=== PATIENT | male | born 1990 | race Caucasian/White ===

== ENCOUNTER 2018-08-26 20:02 | Emergency (ER) | payer BC ==
--- OUTSIDE RECORDS SUMMARY | 2018-08-26 20:05 | XMS REPORT | Clinical Summary ---
:1990 Author Organization [facility] Address [address] [place] [address] Care Team Providers Name Role Phone Demetrius Hale Primary Care Provider Allergies No Known Allergies Medications Medication Sig Dispensed Refills Start Date End Date Status divalproex (DEPAKOTE) Take 500 mg by 0 Active 500 MG EC tablet mouth 2 (two) times daily. ARIPiprazole (ABILIFY) Take 15 mg by 0 Active 15 MG tablet mouth daily. lisdexamfetamine Take 40 mg by 0 Active (VYVANSE) 40 MG capsule mouth every morning. HYDROcodone-acetaminophe Take 1-2 18 tablet 0 04/20/2018 Active n (NORCO 5-325) 5-325 mg tablets by per tablet mouth every 4 (four) hours as needed for Pain. Max Daily Amount: 16 tablets docusate sodium (COLACE) Take 1 capsule 60 capsule 0 04/20/2018 Active 100 MG capsule (100 mg total) by mouth 2 (two) times daily as needed for Constipation. Active Problems Not on file Encounters Date Type Specialty Care Team Description 04/20/2018 Emergency Emergency Medicine Olayinka Romero, Acute left- sided low MD back pain without sciatica (Primary Dx) after 08/25/2017 Social History Tobacco Use Types Packs/Day Years Used Date Light Tobacco Smoker Smokeless Tobacco: Never Used Alcohol Use Drinks/Week oz/Week Comments No Sex Assigned at Date Recorded Not on file Job Start Date Occupation Industry Not on file Not on file Not on file Travel History Travel Start Travel End No recent travel history available. Last Filed Vital Signs Vital Sign Reading Time Taken Blood Pressure 119/71 04/20/2018 5:08 PM CDT Pulse 75 04/20/2018 5:08 PM CDT Temperature 36.3 C (97.4 F) 04/20/2018 3:03 PM CDT Respiratory Rate 19 04/20/2018 5:08 PM CDT Oxygen Saturation 100% 04/20/2018 3:03 PM CDT Inhaled Oxygen Concentration - - Weight 99.8 kg (220 lb) 04/20/2018 3:03 PM CDT Height 182.9 cm (6') 04/20/2018 3:03 PM CDT Body Mass Index 29.84 04/20/2018 3:03 PM CDT Plan of Treatment Not on file Procedures Procedure Name Priority Date/Time Associated Diagnosis Comments XR SPINE LUMBAR STAT 04/20/2018 3:56 PM Results for this COMPLETE MIN 4 CDT procedure are in VIEWS the results section. after 08/25/2017 Results XR spine lumbar complete 4 views min (04/20/2018 3:56 PM CDT) Narrative Performed At FINAL REPORT [facility] Radiograph of the lumbar spine Reason for exam: BACK PAIN Comparison:No priors Discussion: There are five lumbar-type vertebral bodies. Alignment is normal, and vertebral body height is maintained. No evidence of pars defect. There is no significant disc space narrowing or degenerative change. Visualized soft tissues are unremarkable. Impressions: Unremarkable exam. Signed: Xavier Botello MD Report Verified Date/Time:04/20/2018 16:12:04 Reading Location: [facility] Radiology Reading Room Procedure Note Interface, External Ris In - 04/20/2018 4:14 PM CDT FINAL REPORT Radiograph of the lumbar spine Reason for exam: BACK PAIN Comparison: No priors Discussion: There are five lumbar-type vertebral bodies. Alignment is normal, and vertebral body height is maintained. No evidence of pars defect. There is no significant disc space narrowing or degenerative change. Visualized soft tissues are unremarkable. Impressions: Unremarkable exam. Signed: Xavier Botello MD Report Verified Date/Time: 04/20/2018 16:12:04 Reading Location: [facility] Radiology Reading Room Performing Organization Address City/State/Zipcode Phone Number [facility] after 08/25/2017 Insurance Payer Benefit Plan / Subscriber ID Type Phone Address Group BLUE CROSS/BLUE BCBS ADV HMO xxxxxxxxxxxx [phone] [id number] [place] [address]
--- OUTSIDE RECORDS SUMMARY | 2018-08-26 20:05 | XMS REPORT ---
:1990 Author [facility] Address [address] [place] [address] Dr. Ortiz [address] [place] [id number] Care Team Providers Name Role Phone Unavailable Unavailable Unavailable Problems This patient has no known problems. Allergies, Adverse Reactions, Alerts This patient has no known allergies or adverse reactions. Medications This patient has no known medications. Results Test Description Test Time Test Comments Text Results Atomic Results Result Comments RAD, SPINE, 2018-04-20 16:12:00 Reason for FINAL REPORT PATIENT ID: LUMBAR, COMPLETE exam:->BACK PAIN [id number] Radiograph (MIN 4 VIEWS) of the lumbar spine Reason for exam: BACK PAIN Comparison: No priors Discussion: There are five lumbar-type vertebral bodies. Alignment is normal, and vertebral body height is maintained. No evidence of pars defect. There is no significant disc space narrowing or degenerative change. Visualized soft tissues are unremarkable. Impressions: Unremarkable exam. Signed: Xavier Botello Verified Date/Time: 04/20/2018 16:12:04 Reading Location: [facility] Radiology Reading Room
--- OUTSIDE RECORDS SUMMARY | 2018-08-26 20:05 | XMS REPORT | Clinical Summary ---
:1990 Author Organization [facility] Address [address] [place] [address] Care Team Providers Name Role Phone Asked, No Pcp Primary Care Provider Unavailable Allergies No Known Allergies Current Medications Prescription Sig. Disp. Refills Start Date End Date Status divalproex (DEPAKOTE) Take 500 mg Active 500 MG EC tablet by mouth 2 (two) times a day. lisdexamfetamine Take 40 mg by Active (VYVANSE) 40 MG capsule mouth daily. traMADol (ULTRAM) 50 mg Take 1 tablet 15 tablet 0 01/11/2018 01/16/2018 tablet (50 mg total) by mouth every 6 (six) hours as needed for severe pain for up to 5 days. Active Problems Not on file Encounters Date Type Specialty Care Team Description 01/11/2018 Emergency Emergency Medicine Kaitlin Hester Sprain of right wrist, initial encounter (Primary Dx); MD Marti Neurapraxia of right upper extremity, initial encounter 01/11/2018 Procedure Pass Emergency Medicine after 08/25/2017 Social History Tobacco Use Types Packs/Day Years Used Date Former Smoker Smokeless Tobacco: Current User Alcohol Use Drinks/Week oz/Week Comments Yes Sex Assigned at Date Recorded Not on file Last Filed Vital Signs Vital Sign Reading Time Taken Blood Pressure 113/68 01/11/2018 9:47 PM CDT Pulse 64 01/11/2018 9:47 PM CDT Temperature 36.3 C (97.3 F) 01/11/2018 3:03 PM CDT Respiratory Rate 18 01/11/2018 9:47 PM CDT Oxygen Saturation 99% 01/11/2018 9:47 PM CDT Inhaled Oxygen Concentration - - Weight 90.7 kg (200 lb) 01/11/2018 3:02 PM CDT Height 182.9 cm (6') 01/11/2018 3:02 PM CDT Body Mass Index 27.12 01/11/2018 3:02 PM CDT Plan of Treatment Health Maintenance Due Date Last Done Comments INFLUENZA VACCINE 05/23/2018 Procedures Procedure Name Priority Date/Time Associated Diagnosis Comments MRI UPPER EXTREMITY STAT 01/11/2018 8:47 PM Results for this JOINT WO CONTRAST CDT procedure are in RIGHT the results section. XR HAND 3+ VW RIGHT STAT 01/11/2018 4:13 PM Results for this CDT procedure are in the results section. XR FOREARM 2 VW STAT 01/11/2018 4:13 PM Results for this RIGHT CDT procedure are in the results section. XR WRIST 3+ VW STAT 01/11/2018 3:24 PM Results for this RIGHT CDT procedure are in the results section. after 08/25/2017 Results MRI Upper Extremity Joint Wo Contrast Right (01/11/2018 8:47 PM) Narrative Performed At EXAMINATION:MRI UPPER EXTREMITY WO CONTRAST RIGHT HM RADIANT CLINICAL HISTORY:forearm wrist bulge TECHNIQUE: Multiplanar, multisequence MR imaging examination of right forearm , without contrast.. COMPARISON:X-ray, 01/11/2018 IMPRESSION: 1.Motion artifact degrades image quality and decreases sensitivity of exam. 2.Mild-moderate subcutaneous edema is noted along the radial aspect of the distal half of the forearm extending to the wrist, and there is also mild intramuscular edema of the underlying APL and to a lesser degree EPB muscle bellies. Edema also surrounding the ECRB and ECRL tendons in the distal forearm indicative of mild peritendinitis. The tendons themselves are well-maintained. No focal fluid collection is identified indicate abscess or hematoma. No discrete mass identified. 3.Mild intramuscular edema in the pronator quadratus muscle belly. 4.Periosteal edema dorsally in the distal radius, though the underlying cortex is well-maintained, and there is no abnormal marrow signal. SUMMARY: Soft tissue edema may be bland edema or cellulitis. Reactive strains and peritendinitis as detailed above. No discrete fluid collection or evidence of osteomyelitis. No discrete mass identified. Motion limited study. [id number] Procedure Note Interface, Radiology Results Incoming - 01/11/2018 9:11 PM CDT EXAMINATION: MRI UPPER EXTREMITY WO CONTRAST RIGHT CLINICAL HISTORY: forearm wrist bulge TECHNIQUE: Multiplanar, multisequence MR imaging examination of right forearm , without contrast.. COMPARISON: X-ray, 01/11/2018 IMPRESSION: 1. Motion artifact degrades image quality and decreases sensitivity of exam. 2. Mild-moderate subcutaneous edema is noted along the radial aspect of the distal half of the forearm extending to the wrist, and there is also mild intramuscular edema of the underlying APL and to a lesser degree EPB muscle bellies. Edema also surrounding the ECRB and ECRL tendons in the distal forearm indicative of mild peritendinitis. The tendons themselves are well-maintained. No focal fluid collection is identified indicate abscess or hematoma. No discrete mass identified. 3. Mild intramuscular edema in the pronator quadratus muscle belly. 4. Periosteal edema dorsally in the distal radius, though the underlying cortex is well-maintained, and there is no abnormal marrow signal. SUMMARY: Soft tissue edema may be bland edema or cellulitis. Reactive strains and peritendinitis as detailed above. No discrete fluid collection or evidence of osteomyelitis. No discrete mass identified. Motion limited study. [id number] Performing Organization Address [facility] Phone Number [facility] [phone] [place] [address] XR Hand 3+ Vw Right (01/11/2018 4:13 PM) Narrative Performed At EXAMINATION: XR HAND 3VW RIGHT RADIANT INDICATION: hand pain COMPARISON: None IMPRESSION: 3 views of the hand were obtained. No visible acute fracture or dislocation. Prior dorsal plate and screw instrumentation of the fourth metacarpal. If there is clinical suspicion of a scaphoid fracture, follow-up radiographs are suggested. [id number] Procedure Note Interface, Radiology Results Incoming - 01/11/2018 4:22 PM CDT EXAMINATION: XR HAND 3 VW RIGHT INDICATION: hand pain COMPARISON: None IMPRESSION: 3 views of the hand were obtained. No visible acute fracture or dislocation. Prior dorsal plate and screw instrumentation of the fourth metacarpal. If there is clinical suspicion of a scaphoid fracture, follow-up radiographs are suggested. [id number] Performing Organization Address [facility] Phone Number [facility] [address] [place] [address] XR Forearm 2 Vw Right (01/11/2018 4:13 PM) Narrative Performed At EXAMINATION: XR FOREARM 2 VW RIGHT RADIANT INDICATION: bony pain COMPARISON: None IMPRESSION: 2 views of the forearm were obtained. No visible acute fracture or dislocation. [id number] Procedure Note Interface, Radiology Results Incoming - 01/11/2018 4:20 PM CDT EXAMINATION: XR FOREARM 2 VW RIGHT INDICATION: bony pain COMPARISON: None IMPRESSION: 2 views of the forearm were obtained. No visible acute fracture or dislocation. [id number] Performing Organization Address [facility] Phone Number [facility] [address] [place] [address] XR Wrist 3+ Vw Right (01/11/2018 3:24 PM) Narrative Performed At EXAMINATION: XR WRIST 3VW RIGHT RADIANT INDICATION: JOINT PAINWRIST COMPARISON: None IMPRESSION: 3 views of the wrist were obtained. No visible acute fracture or dislocation. Old dorsal plate and screw fixation of the fourth metacarpal. If there is clinical suspicion for a scaphoid fracture, follow-up radiographs are suggested. [id number] Procedure Note Interface, Radiology Results Incoming - 01/11/2018 3:32 PM CDT EXAMINATION: XR WRIST 3 VW RIGHT INDICATION: JOINT PAIN WRIST COMPARISON: None IMPRESSION: 3 views of the wrist were obtained. No visible acute fracture or dislocation. Old dorsal plate and screw fixation of the fourth metacarpal. If there is clinical suspicion for a scaphoid fracture, follow-up radiographs are suggested. [id number] Performing Organization Address [facility] Phone Number [facility] [address] [place] [address] after 08/25/2017 Insurance Payer Benefit Plan / Group Subscriber ID Type Phone Address BCBS BCBS OUT OF STATE xxxxxxxxxxxx PPO BCBS BCBS CHOICE PPO/FEDERAL EMPL PPO xxxxxxxxxxxx PPO
[2018-08-26] MEDS ORDERED: HYDROCODONE/APAP 5/325 MG TAB ONE (20:27)
[2018-08-26] MEDS ORDERED: DIAZEPAM 5 MG TABLET ONE (20:28)
--- NOTE | 2018-08-26 21:04 | ER ---
Nurse's Notes [facility] Name: Ranjeet John Age: 28 yrs Sex: Male : 1990 Arrival Date: 08/26/2018 Time: 20:06 Bed 13 Private MD: Demetrius Hale E Diagnosis: Internal derangement of knee Presentation: 08/26 20:08 Presenting complaint: Patient states: I awkwardly stepped off of something and felt and la1 heard a pop in my right knee. Transition of care: patient was not received from another setting of care. Onset of symptoms was August 26, 2018. Risk Assessment: Do you want to hurt yourself or someone else? Patient reports no desire to harm self or others. Initial Sepsis Screen: Does the patient meet any 2 criteria? No. Patient's initial sepsis screen is negative. Does the patient have a suspected source of infection? No. Patient's initial sepsis screen is negative. Care prior to arrival: None. 20:08 Method Of Arrival: Wheelchair la1 20:08 Acuity: TERI 4 la1 Triage Assessment: 21:00 Injury Description: swelling. rr5 21:00 General: Appears in no apparent distress. rr5 Historical: - Allergies: 20:09 No Known Allergies; la1 - Home Meds: 21:23 Adderall XR Oral [Active]; Depakote Oral [Active]; rr5 - PMHx: 20:09 ADD/ADHD; mood disorder; la1 - PSHx: 20:09 right knee; zeferino hands; la1 - Immunization history:: Adult Immunizations up to date. - Social history:: Smoking status: Patient uses tobacco products, denies chronic smoking, but will smoke occasionally. - Ebola Screening: : No symptoms or risks identified at this time. Screenin:21 Abuse screen: Denies threats or abuse. Denies injuries from another. Nutritional rr5 screening: No deficits noted. Tuberculosis screening: Fall Risk Ambulatory Aid- Crutches/Cane/Walker (15 pts). Assessment: 20:10 General: Appears in no apparent distress. comfortable, Behavior is calm, cooperative. rr5 Pain: Complains of pain in right knee Pain does not radiate. Pain currently is 6 out of 10 on a pain scale. Quality of pain is described as aching, Pain began suddenly, Is intermittent, Aggravated by increased activity. Neuro: Level of Consciousness is awake, alert, obeys commands, Oriented to person, place, time. Cardiovascular: Capillary refill < 3 seconds Patient's skin is warm and dry. Respiratory: Airway is patent. GI: No signs and/or symptoms were reported involving the gastrointestinal system. Abdomen is flat. : No signs and/or symptoms were reported regarding the genitourinary system. EENT: No signs and/or symptoms were reported regarding the EENT system. Derm: No signs and/or symptoms reported regarding the dermatologic system. Musculoskeletal: Capillary refill < 3 seconds, Range of motion: limited in right knee. Vital Signs: 20:09 BP 134 / 100; Pulse 73; Resp 16; Pulse Ox 99% on R/A; Weight 108.86 kg; Height 6 ft. 0 la1 in. (182.88 cm); Pain 7/10; 20:09 Body Mass Index 32.55 (108.86 kg, 182.88 cm) la1 ED Course: 20:06 Patient arrived in ED. es 20:07 Demetrius Hale MD is Private Physician. es 20:08 Triage completed. la1 20:10 Arm band placed on left wrist. la1 20:11 Driss Doran PA is PHCP. jmm 20:11 Ian Ahn MD is Attending Physician. jmm 20:12 Barry Palacios, RYAN is Primary Nurse. rr5 20:32 Knee Right 3 View XRAY In Process Unspecified. EDMS 21:00 Patient has correct armband on for positive identification. Bed in low position. Call rr5 light in reach. 21:03 Vikram Recio MD is Referral Physician. [facility] 21:21 No provider procedures requiring assistance completed. Patient did not have IV access rr5 during this emergency room visit. Administered Medications: 20:23 Drug: Aptos 5 mg-325 mg 1 tabs Route: PO; rr5 21:25 Follow up: Response: No adverse reaction; advised not to drive rr5 20:23 Drug: Valium 5 mg Route: PO; rr5 21:24 Follow up: Response: No adverse reaction; advised not to drive. rr5 Intake: Outcome: 21:03 Discharge ordered by . jmm 21:21 Discharged to home with crutches. rr5 21:21 Condition: stable 21:21 Discharge instructions given to patient, Instructed on discharge instructions, follow up and referral plans. medication usage, Demonstrated understanding of instructions, follow-up care, medications, Prescriptions given X 1. 21:24 Patient left the ED. rr5 Signatures: Dispatcher [employer] Driss Castañeda PA PA jmm Salyer, Edna es Attema, Lee RN RN la1 Barry Palacios RN RN rr5
--- NOTE | 2018-08-26 21:04 | EDPHYS ---
Physician Documentation [facility] Name: Ranjeet John Age: 28 yrs Sex: Male : 1990 Arrival Date: 08/26/2018 Time: 20:06 Bed 13 Private MD: Demetrius Hale E ED Physician Ina Ahn HPI: 08/26 20:43 This 28 yrs old Male presents to ER via Wheelchair with complaints of Knee jmm Injury. 20:43 The patient presents with an injury, pain, that is acute. Onset: The symptoms/episode jmm began/occurred acutely, just prior to arrival. Associated signs and symptoms:. Patient complains of right knee pain after misstep off a [place]. States feeling a pop with radiation of pain down the right leg. . Historical: - Allergies: 20:09 No Known Allergies; la1 - Home Meds: 21:23 Adderall XR Oral [Active]; Depakote Oral [Active]; rr5 - PMHx: 20:09 ADD/ADHD; mood disorder; la1 - PSHx: 20:09 right knee; zeferino hands; la1 - Immunization history:: Adult Immunizations up to date. - Social history:: Smoking status: Patient uses tobacco products, denies chronic smoking, but will smoke occasionally. - Ebola Screening: : No symptoms or risks identified at this time. ROS: 20:43 Constitutional: Negative for fever, chills, and weight loss, Cardiovascular: Negative jmm for chest pain, palpitations, and edema, Respiratory: Negative for shortness of breath, cough, wheezing, and pleuritic chest pain, Abdomen/GI: Negative for abdominal pain, nausea, vomiting, diarrhea, and constipation. 20:43 MS/extremity: Positive for injury or acute deformity, pain. 20:43 All other systems are negative. Exam: 20:43 Constitutional: This is a well developed, well nourished patient who is awake, alert, jmm and in no acute distress. Head/Face: atraumatic. Eyes: EOMI, no conjunctival erythema appreciated ENT: Moist Mucus Membranes Neck: Trachea midline, Supple Chest/axilla: Normal chest wall appearance and motion. Cardiovascular: Regular rate and rhythm. No edema appreciated Respiratory: Normal respirations, no respiratory distress appreciated Back: Normal ROM Skin: General appearance color normal 20:43 Musculoskeletal/extremity: pain on flexion is appreciated to the right knee, no effusion is appreciated, no obvious deformity, compartments are soft, full dorsalis pedis pulse, pain is elicited on palpation of the right medial knee, NVI. 20:43 Skin: Appearance: Color: normal in color. 20:43 Neuro: Orientation: is normal, Mentation: is normal, Memory: is normal. 20:43 Psych: Behavior/mood is pleasant, cooperative. Vital Signs: 20:09 BP 134 / 100; Pulse 73; Resp 16; Pulse Ox 99% on R/A; Weight 108.86 kg; Height 6 ft. 0 la1 in. (182.88 cm); Pain 7/10; 20:09 Body Mass Index 32.55 (108.86 kg, 182.88 cm) la1 MDM: 20:12 Patient medically screened. [facility] 21:01 Data reviewed: vital signs, nurses notes. Counseling: I had a detailed discussion with [facility] the patient and/or guardian regarding: the historical points, exam findings, and any diagnostic results supporting the discharge/admit diagnosis, radiology results, the need for outpatient follow up, to return to the emergency department if symptoms worsen or persist or if there are any questions or concerns that arise at home. 08/26 20:17 Order name: Knee Right 3 View XRAY [facility] 08/26 20:28 Order name: Crutches; Complete Time: 21:24 [facility] 08/26 20:28 Order name: Knee Immobilizer; Complete Time: 21:24 [facility] Administered Medications: 20:23 Drug: [place] 5 mg-325 mg 1 tabs Route: PO; rr5 21:25 Follow up: Response: No adverse reaction; advised not to drive rr5 20:23 Drug: Valium 5 mg Route: PO; rr5 21:24 Follow up: Response: No adverse reaction; advised not to drive. rr5 Disposition: 08/27 06:58 Co-signature as Attending Physician, Ian Ahn MD I agree with the assessment and alissa plan of care. Disposition: 08/26/18 21:03 Discharged to Home. Impression: Internal derangement of knee. - Condition is Stable. - Discharge Instructions: Knee Pain. - Prescriptions for Ibuprofen 800 mg Oral Tablet - take 1 tablet by ORAL route every 8 hours As needed take with food; 30 tablet. - Medication Reconciliation Form, Thank You Letter, Antibiotic Education, Prescription Opioid Use form. - Follow up: Vikram Recio MD; When: 2 - 3 days; Reason: Recheck today's complaints, Continuance of care, Re-evaluation by your physician. Signatures: Dispatcher [employer] EDMS Ian Ahn MD MD cha Mickail, Joel, PA PA jmm Attema, Lee RN RN la1 Barry Palacios RN RN rr5 Corrections: (The following items were deleted from the chart) 08/26 21:24 21:03 08/26/2018 21:03 Discharged to Home. Impression: Internal derangement of knee. rr5 Condition is Stable. Forms are Medication Reconciliation Form, Thank You Letter, Antibiotic Education, Prescription Opioid Use. Follow up: Dr. Vikram Recio; When: 2 - 3 days; Reason: Recheck today's complaints, Continuance of care, Re-evaluation by your physician. [place]
--- NOTE | 2018-08-26 21:36 | RAD REPORT ---
EXAM DESCRIPTION: RAD - Knee Right 3 View - 08/26/2018 8:34 pm CLINICAL HISTORY: Knee pain, twisting injury COMPARISON: None. FINDINGS: No fracture, dislocation or periosteal reaction.No joint effusion seen. No joint space travis rowing. No foreign body or other soft tissue abnormality. Bony defect is present related to prior ACL repair IMPRESSION: Negative right knee for acute finding. Clinical concerns for internal derangement or occult bony injury could be further assessed with MR im aging.
== END 2018-08-26 21:24 | disposition home or self-care (01) ==
LOC: ER 20:02
DX: M23.91 Unspecified internal derangement of right knee (principal); X58.XXXA Exposure to other specified factors, initial encounter; Y93.01 Activity, walking, marching and hiking; Y92.89 Other specified places as the place of occurrence of the external cause; Z72.0 Tobacco use; F90.9 Attention-deficit hyperactivity disorder, unspecified type
CPT/HCPCS: 99283

== ENCOUNTER 2018-12-30 11:20 | Emergency (ER) | payer BC ==
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
--- OUTSIDE RECORDS SUMMARY | 2018-12-30 11:23 | XMS REPORT | Clinical Summary ---
:1990 Author Organization [facility] Address [address] [place] [address] Care Team Providers Name Role Phone Demetrius [...] back pain without sciatica (Primary Dx) after 12/29/2017 Social History Tobacco Use Types [...] are in VIEWS the results section. after 12/29/2017 Results XR spine lumbar complete 4 views min (04/20/2018 3:56 PM CDT) Narrative Performed At FINAL REPORT [facility] Radiograph of the lumbar spine Reason for exam: BACK PAIN Comparison:No priors Discussion: There are five lumbar-type vertebral bodies. Alignment is normal, and vertebral body height is maintained. No evidence of pars defect. There is no significant disc space narrowing or degenerative change. Visualized soft tissues are unremarkable. Impressions: Unremarkable exam. Signed: Xavier Botello MD Report Verified Date/Time:04/20/2018 16:12:04 Reading Location: [facility] Radiology Reading Room Procedure Note Interface, External [...] Report Verified Date/Time: 04/20/2018 16:12:04 Reading Location: [facility] Radiology Reading Room Performing Organization Address City/State/Zipcode Phone Number [facility] after 12/29/2017 Insurance Payer Benefit Plan / Subscriber ID Type Phone Address Group BLUE CROSS/BLUE BCBS ADV HMO xxxxxxxxxxxx [phone] [address] [place] [address]
--- OUTSIDE RECORDS SUMMARY | 2018-12-30 11:23 | XMS REPORT ---
:1990 [facility] Address [address] [place] [address] Dr. Ortiz [address] [place] [address] Care Team Providers Name Role Phone Unavailable Unavailable Unavailable Problems This patient has no known problems. Allergies, Adverse Reactions, Alerts This patient has no known allergies or adverse reactions. Medications This patient has no known medications. Results Test Description Test Time Test Comments Text Results Atomic Results Result Comments RAD, SPINE, 2018-04-20 16:12:00 Reason for FINAL REPORT PATIENT ID: LUMBAR, COMPLETE exam:->BACK PAIN [id number] Radiograph (MIN 4 VIEWS) of the lumbar [...] Botello Verified Date/Time: 04/20/2018 16:12:04 Reading Location: [facility] Radiology Reading Room
[2018-12-30] MEDS ORDERED: IBUPROFEN 400 MG TAB ONE (12:07)
--- NOTE | 2018-12-30 12:17 | RAD REPORT ---
EXAM DESCRIPTION: RAD - Shoulder Right 2 View - 12/30/2018 12:06 pm CLINICAL HISTORY: PAIN COMPARISON: No comparisons FINDINGS: No bone or joint abnormality is detected.
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
--- NOTE | 2018-12-30 12:31 | EDPHYS ---
Physician Documentation [facility] Name: Ranjeet John Age: 28 yrs Sex: Male : 1990 Arrival Date: 12/30/2018 Time: 11:23 Bed 13 Private MD: Demetrius Hale E ED Physician Ian Ahn HPI: 12/30 12:28 This 28 yrs old Male presents to ER via Ambulatory with complaints of kb Shoulder Injury. 12:28 The patient or guardian complains of pain, that is acute. right shoulder. Context: The kb problem was sustained outdoors, resulted from walking dog and dog pulled on the leash , The patient reports no decreased range of motion. The patient reports no obvious deformity. Onset: The symptoms/episode began/occurred just prior to arrival. Modifying factors: the symptoms are alleviated by nothing. The symptoms are aggravated by movement. Associated signs and symptoms: Pertinent positives: severe pain, Pertinent negatives: abdominal pain, chest pain, diaphoresis, dyspnea, neck pain, shortness of breath. Severity of symptoms: At their worst the symptoms were moderate, in the emergency department the symptoms are unchanged. Treatment prior to arrival includes: no previous treatment. The patient has not experienced similar symptoms in the past. The patient has not recently seen a physician. Historical: - Allergies: 11:51 No Known Allergies; tw2 - Home Meds: 11:49 Adderall XR Oral [Active]; Depakote Oral [Active]; Abilify oral oral [Active]; tw2 - PMHx: 11:49 ADD/ADHD; mood disorder; tw2 - PSHx: 11:49 right knee; zeferino hands; tw2 - Immunization history:: Adult Immunizations. - Social history:: Smoking status: Patient uses tobacco products, 1/3 a pack per day. - Ebola Screening: : Patient denies travel to an Ebola-affected area in the 21 days before illness onset. ROS: 12:26 Constitutional: Negative for fever, chills, and weight loss, Cardiovascular: Negative kb for chest pain, palpitations, and edema, Respiratory: Negative for shortness of breath, cough, wheezing, and pleuritic chest pain, Abdomen/GI: Negative for abdominal pain, nausea, vomiting, diarrhea, and constipation, Skin: Negative for injury, rash, and discoloration, Neuro: Negative for headache, weakness, numbness, tingling, and seizure. 12:26 MS/extremity: Positive for pain, of the posterior aspect of right shoulder and anterior aspect of right shoulder. Exam: 12:26 Constitutional: This is a well developed, well nourished patient who is awake, alert, kb and in no acute distress. Head/Face: Normocephalic, atraumatic. Chest/axilla: Normal chest wall appearance and motion. Nontender with no deformity. No lesions are appreciated. Cardiovascular: Regular rate and rhythm with a normal S1 and S2. No gallops, murmurs, or rubs. Normal PMI, no JVD. No pulse deficits. Respiratory: Lungs have equal breath sounds bilaterally, clear to auscultation and percussion. No rales, rhonchi or wheezes noted. No increased work of breathing, no retractions or nasal flaring. Abdomen/GI: Soft, non-tender, with normal bowel sounds. No distension or tympany. No guarding or rebound. No evidence of tenderness throughout. Skin: Warm, dry with normal turgor. Normal color with no rashes, no lesions, and no evidence of cellulitis. Neuro: Awake and alert, GCS 15, oriented to person, place, time, and situation. Cranial nerves II-XII grossly intact. Motor strength 5/5 in all extremities. Sensory grossly intact. Cerebellar exam normal. Normal gait. 12:26 Musculoskeletal/extremity: Extremities: grossly normal except: noted in the posterior aspect of right shoulder and anterior aspect of right shoulder: pain, ROM: intact in all extremities, Circulation is intact in all extremities. Sensation intact. Vital Signs: 11:47 BP 124 / 88; Pulse 97; Resp 18; Temp 98.4(O); Pulse Ox 98% on R/A; Weight 99.79 kg (R); tw2 Height 6 ft. 0 in. (182.88 cm); Pain 8/10; 12:29 BP 115 / 83; Pulse 94; Resp 17; Pulse Ox 96% on R/A; tw2 11:47 Body Mass Index 29.84 (99.79 kg, 182.88 cm) tw2 MDM: 11:46 Patient medically screened. kb 12:27 Data reviewed: vital signs, nurses notes. Data interpreted: Pulse oximetry: on room air kb is 98 %. Interpretation: normal. Counseling: I had a detailed discussion with the patient and/or guardian regarding: the historical points, exam findings, and any diagnostic results supporting the discharge/admit diagnosis, radiology results, the need for outpatient follow up, a family practitioner, to return to the emergency department if symptoms worsen or persist or if there are any questions or concerns that arise at home. 12/30 11:52 Order name: Shoulder Right (2 View) XRAY; Complete Time: 12:19 kb 12/30 12:29 Order name: Sling; Complete Time: 12:34 kb Administered Medications: 11:58 Drug: Ibuprofen 800 mg Route: PO; tw2 12:38 Follow up: Response: No adverse reaction tw2 Disposition: 12/31 09:35 Co-signature as Attending Physician, Ian Ahn MD I agree with the assessment and alissa plan of care. Disposition: 12/30/18 12:30 Discharged to Home. Impression: Pain in right shoulder. - Condition is Stable. - Discharge Instructions: Shoulder Pain, [id number]. - Prescriptions for Cyclobenzaprine 10 mg Oral Tablet - take 1 tablet by ORAL route every 8 hours As needed; 21 tablet. Diclofenac Sodium 75 mg Oral Tablet, Delayed Release (E.C.) - take 1 tablet by ORAL route 2 times per day As needed; 30 tablet. - Medication Reconciliation Form, Thank You Letter, Antibiotic Education, Prescription Opioid Use, Work release form form. - Follow up: Emergency Department; When: As needed; Reason: Worsening of condition. Follow up: Private Physician; When: 2 - 3 days; Reason: Recheck today's complaints, Continuance of care, Re-evaluation by your physician. Signatures: Dispatcher [employer] Stefany Chao, Ian Rodriguez MD MD cha Wise, Tara, RN RN tw2 Corrections: (The following items were deleted from the chart) 12/30 12:39 12:30 12/30/2018 12:30 Discharged to Home. Impression: Pain in right shoulder. tw2 Condition is Stable. Forms are Medication Reconciliation Form, Thank You Letter, Antibiotic Education, Prescription Opioid Use. Follow up: Emergency Department; When: As needed; Reason: Worsening of condition. Follow up: Private Physician; When: 2 - 3 days; Reason: Recheck today's complaints, Continuance of care, Re-evaluation by your physician. kb
== END 2018-12-30 12:39 | disposition home or self-care (01) ==
LOC: ER 11:20
DX: M25.511 Pain in right shoulder (principal); F90.9 Attention-deficit hyperactivity disorder, unspecified type; Z72.0 Tobacco use
CPT/HCPCS: 99284

== ENCOUNTER 2019-02-28 11:39 | Emergency (ER) | payer BC ==
--- OUTSIDE RECORDS SUMMARY | 2019-02-28 11:41 | XMS REPORT | Clinical Summary ---
:1990 Author Organization [facility] Address [address] [place] [address] Care Team Providers Name Role Phone Demetrius [...] Team Description 04/20/2018 Emergency Emergency Medicine Olayinka Romero Acute left-sided alcira Galindo MD back pain without sciatica (Primary Dx) after 02/27/2018 Social History Tobacco Use Types Packs/Day Years [...] are in VIEWS the results section. after 02/27/2018 Results XR spine lumbar complete 4 views min (04/20/2018 3:56 PM CDT) Specimen Narrative Performed At FINAL REPORT [facility] Radiograph of the lumbar spine Reason for exam: BACK PAIN Comparison:No priors Discussion: There are five lumbar-type vertebral bodies. Alignment is normal, and vertebral body height is maintained. No evidence of pars defect. There is no significant disc space narrowing or degenerative change. Visualized soft tissues are unremarkable. Impressions: Unremarkable exam. Signed: Xavier Botello MD Report Verified Date/Time:04/20/2018 16:12:04 Reading Location: [facility] Radiology Reading Room Procedure Note Interface, External [...] Report Verified Date/Time: 04/20/2018 16:12:04 Reading Location: [facility] Radiology Reading Room Performing Organization Address City/State/Zipcode Phone Number [facility] after 02/27/2018 Insurance Payer Benefit Plan / Subscriber ID Type Phone Address Group BLUE CROSS/BLUE BCBS ADV HMO xxxxxxxxxxxx [phone] [address] [place] [address]
--- OUTSIDE RECORDS SUMMARY | 2019-02-28 11:41 | XMS REPORT | Clinical Summary ---
:1990 Author Organization [facility] Address [address] [place] [address] Care Team Providers Name Role Phone Asked, No Pcp Primary Care Provider Unavailable Allergies No Known Allergies Medications Medication Sig Dispensed Refills Start Date End Date Status divalproex (DEPAKOTE) 500 Take 500 mg by 0 Active MG EC tablet mouth 2 (two) times a day. lisdexamfetamine (VYVANSE) Take 40 mg by 0 Active 40 MG capsule mouth daily. Active Problems Not on file Social History Tobacco Use Types Packs/Day Years Used Date Former Smoker Smokeless Tobacco: Current User Alcohol Use Drinks/Week oz/Week Comments Yes Sex Assigned at Date Recorded Not on file Job Start Date Occupation Industry Not on file Not on file Not on file Travel History Travel Start Travel End No recent travel history available. Last Filed Vital Signs Not on file Plan of Treatment Health Maintenance Due Date Last Done Comments INFLUENZA VACCINE 05/23/2019 Results Not on fileafter 02/27/2018 Insurance Payer Benefit Plan / Group Subscriber ID Type Phone Address BCBS BCBS OUT OF STATE xxxxxxxxxxxx PPO BCBS BCBS CHOICE PPO/FEDERAL EMPL PPO xxxxxxxxxxxx PPO Advance Directives Patient has advance care planning documents on file. For more information, please contact:Kevin Barrera[address] [place] [address]
--- OUTSIDE RECORDS SUMMARY | 2019-02-28 11:42 | XMS REPORT ---
:1990 [facility] Address [address] [place] [address] Dr. Ortiz [address] [place] [address] Care Team Providers Name Role Phone Unavailable Unavailable Unavailable Problems This patient has no known problems. Allergies, Adverse Reactions, Alerts This patient has no known allergies or adverse reactions. Medications This patient has no known medications. Results Test Description Test Time Test Comments Text Results Atomic Results Result Comments RAD, SPINE, 2018-04-20 16:12:00 Reason for FINAL REPORT PATIENT ID: LUMBAR, COMPLETE exam:->BACK PAIN [id number] Radiograph (MIN 4 VIEWS) of the lumbar [...] Botello Verified Date/Time: 04/20/2018 16:12:04 Reading Location: [facility] Radiology Reading Room
[2019-02-28] MEDS ORDERED: DIAZEPAM 5 MG TABLET ONE (13:56)
[2019-02-28] MEDS ORDERED: HYDROCODONE/APAP 10/325 TAB ONE (13:56)
[2019-02-28] MEDS ORDERED: KETOROLAC 30 MG/ML INJ ONE (13:57)
--- NOTE | 2019-02-28 16:02 | ER ---
Nurse's Notes [facility] Name: Ranjeet John Age: 28 yrs Sex: Male : 1990 Arrival Date: 02/28/2019 Time: 11:41 Bed Treatment Private MD: Demetrius Hale E Diagnosis: Sciatica, left side Presentation: 02/28 11:50 Presenting complaint: Patient states: last year i hurt my back, went to [facility] and was hj told i have an herniated disc; the pain 08/01;. Transition of care: patient was not received from another setting of care. Onset of symptoms was February 28, 2019. Risk Assessment: Do you want to hurt yourself or someone else? Patient reports no desire to harm self or others. Initial Sepsis Screen: Does the patient meet any 2 criteria? No. Patient's initial sepsis screen is negative. Does the patient have a suspected source of infection? No. Patient's initial sepsis screen is negative. Care prior to arrival: None. 11:50 Method Of Arrival: Ambulatory 11:50 Acuity: TERI 4 hj Triage Assessment: 13:11 General: Appears in no apparent distress. uncomfortable, Behavior is calm, cooperative, hj appropriate for age. Pain: Complains of pain in back. Musculoskeletal: Circulation, motion, and sensation intact. Capillary refill < 3 seconds. Historical: - Allergies: 11:52 No Known Allergies; hj - PMHx: 11:52 ADD/ADHD; mood disorder; hj - PSHx: 11:52 right knee; zeferino hands; hj - Immunization history:: Adult Immunizations up to date. - Social history:: Smoking status: Patient/guardian denies using tobacco, Patient/guardian denies using alcohol. - Ebola Screening: : Patient negative for fever greater than or equal to 101.5 degrees Fahrenheit, and additional compatible Ebola Virus Disease symptoms Patient denies exposure to infectious person Patient denies travel to an Ebola-affected area in the 21 days before illness onset. Screenin:11 Abuse screen: Denies threats or abuse. Denies injuries from another. Nutritional hj screening: No deficits noted. Tuberculosis screening: No symptoms or risk factors identified. Fall Risk None identified. Assessment: 13:21 Reassessment: awaiting for provider to sign up;. hj 14:35 Reassessment: Patient and/or family updated on plan of care and expected duration. Pain hj level reassessed. Patient is alert, oriented x 3, equal unlabored respirations, skin warm/dry/pink. awaiting dispo. 15:56 Reassessment: Pt reports that pain medication has helped some, but is coming back. ISAI Naqvi notified. Decadron ordered and administered. Vital Signs: 11:52 BP 132 / 75; Pulse 89; Resp 18; Temp 98.2(TE); Pulse Ox 96% on R/A; Weight 97.52 kg; hj Height 6 ft. 0 in. (182.88 cm); Pain 10/10; 11:52 Body Mass Index 29.16 (97.52 kg, 182.88 cm) hj ED Course: 11:41 Patient arrived in ED. as 11:41 Demetrius Hale MD is Private Physician. as 11:51 Triage completed. hj 11:53 Arm band placed on right wrist. hj 13:09 Jerry Schmidt, RYAN is Primary Nurse. hj 13:12 Patient has correct armband on for positive identification. Bed in low position. Call hj light in reach. Side rails up X 1. 13:30 [facility] 13:30 Javed Mcarthur MD is Attending Physician. [facility] 16:01 Vamshi Gibbs MD is Referral Physician. [facility] 16:26 No provider procedures requiring assistance completed. Patient did not have IV access ss during this emergency room visit. Administered Medications: 13:41 Drug: Ketorolac 60 mg Route: IM; Site: right deltoid; hj 13:52 Follow up: Response: No adverse reaction hj 13:41 Drug: Valium 5 mg Route: PO; hj 13:52 Follow up: Response: No adverse reaction; Anxiety decreased hj 13:41 Drug: Radford 10 mg-325 mg 1 tabs Route: PO; hj 13:52 Follow up: Response: Pain is decreased hj 15:55 Drug: Decadron 10 mg Route: IM; Site: left deltoid; ss 16:26 Follow up: Response: No adverse reaction; Pain is decreased ss 16:27 Follow up: Response: No adverse reaction hj Outcome: 16:02 Discharge ordered by . [facility] 16:26 Discharged to home ambulatory. 16:26 Condition: good 16:26 Discharge instructions given to patient, Instructed on discharge instructions, follow up and referral plans. medication usage, Demonstrated understanding of instructions, follow-up care, medications, Prescriptions given X 3. 16:32 Patient left the ED. ph Signatures: Driss Doran PA PA jmm Martinez, Amelia as Smirch, Shelby, RYAN RN Shazia John RN RN Jerry Schmidt RN RN
--- NOTE | 2019-02-28 16:02 | EDPHYS ---
Physician Documentation [facility] Name: Ranjeet John Age: 28 yrs Sex: Male : 1990 Arrival Date: 02/28/2019 Time: 11:41 Bed Treatment Private MD: Demetrius Hale E ED Physician Javed Mcarthur HPI: 02/28 13:40 This 28 yrs old Male presents to ER via Ambulatory with complaints of Back jmm Pain. 13:40 The patient presents with pain that is acute. Onset: The symptoms/episode jmm began/occurred gradually, 1 week(s) ago. The pain radiates to the left leg. Associated signs and symptoms: Pertinent negatives: chest pain, dysuria, fever, incontinence, nausea, numbness, tingling, urinary retention, weakness. This is a 28 year old male with a history of chronic back pain that presents to the ED with complaints of lower back pain with intermittent spasms. Patient states his pain radiates down his left leg. Patient denies fever. States having a similar episode approx 1 year ago. Denies bowel or bladder issues. . Historical: - Allergies: 11:52 No Known Allergies; hj - PMHx: 11:52 ADD/ADHD; mood disorder; hj - PSHx: 11:52 right knee; zeferino hands; hj - Immunization history:: Adult Immunizations up to date. - Social history:: Smoking status: Patient/guardian denies using tobacco, Patient/guardian denies using alcohol. - Ebola Screening: : Patient negative for fever greater than or equal to 101.5 degrees Fahrenheit, and additional compatible Ebola Virus Disease symptoms Patient denies exposure to infectious person Patient denies travel to an Ebola-affected area in the 21 days before illness onset. ROS: 13:40 Constitutional: Negative for fever, chills, and weight loss, Cardiovascular: Negative jmm for chest pain, palpitations, and edema, Respiratory: Negative for shortness of breath, cough, wheezing, and pleuritic chest pain, Abdomen/GI: Negative for abdominal pain, nausea, vomiting, diarrhea, and constipation. 13:40 Back: Positive for pain at rest, pain with movement. 13:40 MS/extremity: Positive for pain. 13:40 Neuro: Negative for numbness, weakness. 13:40 All other systems are negative. Exam: 13:40 Head/Face: atraumatic. Eyes: EOMI, no conjunctival erythema appreciated ENT: Moist [facility] Mucus Membranes Neck: Trachea midline, Supple Chest/axilla: Normal chest wall appearance and motion. Cardiovascular: Regular rate and rhythm. No edema appreciated Respiratory: Normal respirations, no respiratory distress appreciated Abdomen/GI: Non distended, soft 13:40 Constitutional: The patient appears in no acute distress, alert, awake. 13:40 Back: mild paraspinal lumbar pain on palpation, no vert pt tenderness. . 13:40 Musculoskeletal/extremity: ROM: intact in all extremities. 13:40 Skin: Appearance: Color: normal in color. 13:40 Neuro: Orientation: is normal, Mentation: is normal, Memory: is normal. 13:40 Neuro: extensor hallucis longus intact bilaterally. 13:40 Psych: Behavior/mood is pleasant, cooperative. Vital Signs: 11:52 BP 132 / 75; Pulse 89; Resp 18; Temp 98.2(TE); Pulse Ox 96% on R/A; Weight 97.52 kg; hj Height 6 ft. 0 in. (182.88 cm); Pain 10/10; 11:52 Body Mass Index 29.16 (97.52 kg, 182.88 cm) MDM: 13:40 Patient medically screened. [facility] 16:00 Data reviewed: vital signs, nurses notes. Counseling: I had a detailed discussion with [facility] the patient and/or guardian regarding: the historical points, exam findings, and any diagnostic results supporting the discharge/admit diagnosis, the need for outpatient follow up, to return to the emergency department if symptoms worsen or persist or if there are any questions or concerns that arise at home. 16:00 ED course: Pain is mildly relieved in the ED. No signs of cord compression on PE. [facility] Patient is advised to follow up with spine and otherwise given strict return precautions. Patient understood and agrees with the plan of care. . Administered Medications: 13:41 Drug: Ketorolac 60 mg Route: IM; Site: right deltoid; 13:52 Follow up: Response: No adverse reaction 13:41 Drug: Valium 5 mg Route: PO; 13:52 Follow up: Response: No adverse reaction; Anxiety decreased 13:41 Drug: Pembroke 10 mg-325 mg 1 tabs Route: PO; 13:52 Follow up: Response: Pain is decreased 15:55 Drug: Decadron 10 mg Route: IM; Site: left deltoid; ss 16:26 Follow up: Response: No adverse reaction; Pain is decreased 16:27 Follow up: Response: No adverse reaction Disposition: 03/01 06:50 Co-signature as Attending Physician, Javed Mcarthur MD I agree with the assessment and kdr plan of care. Disposition: 02/28/19 16:02 Discharged to Home. Impression: Sciatica, left side. - Condition is Stable. - Discharge Instructions: Sciatica. - Prescriptions for Ultracet 37.5- 325 mg Oral Tablet - take 1 tablet by ORAL route every 6 hours - for up to 5 days; do not exceed 8 tablets per day.; 12 tablet. Zanaflex 4 mg Oral Tablet - take 1 tablet by ORAL route every 8 hours As needed; 20 tablet. Medrol (Roderick) 4 mg Oral Tablets, Dose Pack - take 1 tablet by ORAL route as directed - follow package instructions; 1 packet. - Medication Reconciliation Form, Thank You Letter, Antibiotic Education, Prescription Opioid Use, Work release form form. - Follow up: Vamshi Gibbs MD; When: 2 - 3 days; Reason: Recheck today's complaints, Continuance of care, Re-evaluation by your physician. Signatures: Javed Mcarthur MD MD [facility] Driss Doran PA PA jm Felisha Fish RN RN Shazia John RN RN Jerry Schmidt RN RN Corrections: (The following items were deleted from the chart) 02/28 16:32 16:02 02/28/2019 16:02 Discharged to Home. Impression: Sciatica, left side. Condition ph is Stable. Forms are Work release form, Medication Reconciliation Form, Thank You Letter, Antibiotic Education, Prescription Opioid Use. Follow up: Vamshi Gibbs; When: 2 - 3 days; Reason: Recheck today's complaints, Continuance of care, Re-evaluation by your physician. [place]
[2019-02-28] MEDS ORDERED: DEXAMETHASONE 10 MG/ML VIAL ONE (16:04)
== END 2019-02-28 16:32 | disposition home or self-care (01) ==
LOC: ER 11:39
DX: M54.32 Sciatica, left side (principal); F90.9 Attention-deficit hyperactivity disorder, unspecified type
CPT/HCPCS: 96372; 99283; J1100

== ENCOUNTER 2019-07-15 16:49 | Emergency (ER) | payer BC ==
--- OUTSIDE RECORDS SUMMARY | 2019-07-15 16:51 | XMS REPORT ---
:1990 [facility] Address [address] [place] [address] Dr. Ortiz [address] [place] [id number] Care Team Providers Name Role Phone Unavailable Unavailable Unavailable Problems This patient has no known problems. Allergies, Adverse Reactions, Alerts This patient has no known allergies or adverse reactions. Medications This patient has no known medications. Results Test Description Test Time Test Comments Text Results Atomic Results Result Comments RAD, SPINE, 2018-04-20 16:12:00 Reason for FINAL REPORT PATIENT ID: LUMBAR, COMPLETE exam:->BACK PAIN [id number] Radiograph (MIN 4 VIEWS) of the lumbar [...] Botello Verified Date/Time: 04/20/2018 16:12:04 Reading Location: [facility] Radiology Reading Room
--- OUTSIDE RECORDS SUMMARY | 2019-07-15 16:51 | XMS REPORT | Clinical Summary ---
:1990 Author Organization [facility] Address [address] [place] [id number] Care Team Providers Name Role Phone Asked, [...] INFLUENZA VACCINE 05/23/2019 Results Not on fileafter 07/14/2018 Advance Directives For more information, please contact: [phone] Type Date Recorded Patient Assembly And Packing Supervisor Explanation Advance Directives, Living Will 01/11/2018 4:22 PM and Medical Power of Internet Sales Manager
--- OUTSIDE RECORDS SUMMARY | 2019-07-15 16:51 | XMS REPORT | Clinical Summary ---
:1990 Author Organization [facility] Address [address] [place] [address] Care Team Providers Name Role Phone Demetrius Hale Primary Care Provider Unavailable Allergies No Known [...] for Constipation. Active Problems Not on file Social History [...] Signs Not on file Plan of Treatment Not on file Results Not on fileafter 07/14/2018 Insurance Payer Benefit Plan / Subscriber ID Type Phone Address Group BLUE CROSS/BLUE BCBS ADV HMO xxxxxxxxxxxx [phone] [address] [place] [address] 1990 [id number] [place] [address]
[2019-07-15 17:32] LABS: Basophils % 0.6 % (0-1.3); Hematocrit 45.1 % (39.6-49.0); Lymphocytes % 29.8 % (15.3-44.8); MPV 9.9 fL (7.6-11.3); RBC Red Blood Cell Count 5.15 M/uL (4.33-5.43)
[2019-07-15 17:52] LABS: ALT/SGPT 19 U/L (12-78); AST/SGOT 20 U/L (15-37); Albumin 3.6 g/dL (3.4-5.0); Alkaline Phosphatase 36 U/L (45-117); BUN Blood Urea Nitrogen 13 mg/dL (7-18); Bicarbonate 29 mmol/L (21-32); Bilirubin Direct < 0.1 mg/dL (0-0.2); Bilirubin Total 0.2 mg/dL (0.2-1.0); Glucose Level 94 mg/dL (74-106); NT PRO-BNP 25 pg/mL (<125); Potassium 3.8 mmol/L (3.5-5.1); Protein, Total 7.4 g/dL (6.4-8.2); Sodium Level 143 mmol/L (136-145); Troponin (Emerg Dept Use Only) < 0.02 ng/mL (0.0-0.045)
[2019-07-15] MEDS ORDERED: FAMOTIDINE 20 MG/2 ML VIAL IV ONE (17:59)
[2019-07-15] MEDS ORDERED: ASPIRIN 81 MG CHEWABLE TABLET ONE (17:59)
--- NOTE | 2019-07-15 19:15 | RAD REPORT ---
EXAM DESCRIPTION: Dania Single View07/15/2019 6:39 pm CLINICAL HISTORY: Chest pain COMPARISON: 2017 FINDINGS: The lungs appear clear of acute infiltrate. The heart is normal size IMPRESSION: No acute abnormalities displayed
--- NOTE | 2019-07-15 19:39 | EDPHYS ---
Physician Documentation [facility] Name: Ranjeet John Age: 29 yrs Sex: Male : 1990 Arrival Date: 07/15/2019 Time: 16:53 Bed 27 Private MD: Demetrius Hale E ED Physician Ian Ahn HPI: 07/15 17:32 This 29 yrs old Male presents to ER via Ambulatory with complaints of alissa Shortness Of Breath, Chest Pain. 17:32 The patient has shortness of breath at rest, with light activity. Onset: The alissa symptoms/episode began/occurred just prior to arrival. Duration: The symptoms are continuous. The patient's shortness of breath is aggravated by nothing, is alleviated by nothing. Severity of symptoms: At their worst the symptoms were mild in the emergency department the symptoms are unchanged. The patient has experienced similar episodes in the past, a few times. Historical: - Allergies: 17:14 No Known Allergies; aj1 - Home Meds: 17:14 Adderall XR Oral [Active]; Depakote Oral [Active]; aj1 - PMHx: 17:14 ADD/ADHD; mood disorder; aj1 - Immunization history:: Flu vaccine is not up to date. - Social history:: Smoking status: Patient uses tobacco products, denies chronic smoking, but will smoke occasionally. - Ebola Screening: : Patient denies travel to an Ebola-affected area in the 21 days before illness onset. - Family history:: not pertinent. ROS: 17:32 Constitutional: Negative for fever, chills, and weight loss, Eyes: Negative for injury, alissa pain, redness, and discharge, ENT: Negative for injury, pain, and discharge, Neck: Negative for injury, pain, and swelling, Respiratory: Negative for shortness of breath, cough, wheezing, and pleuritic chest pain, Abdomen/GI: Negative for abdominal pain, nausea, vomiting, diarrhea, and constipation, Back: Negative for injury and pain, : Negative for injury, bleeding, discharge, and swelling, MS/Extremity: Negative for injury and deformity, Skin: Negative for injury, rash, and discoloration, Neuro: Negative for headache, weakness, numbness, tingling, and seizure, Psych: Negative for depression, anxiety, suicide ideation, homicidal ideation, and hallucinations, Allergy/Immunology: Negative for hives, rash, and allergies, Endocrine: Negative for neck swelling, polydipsia, polyuria, polyphagia, and marked weight changes, Hematologic/Lymphatic: Negative for swollen nodes, abnormal bleeding, and unusual bruising. 17:32 Cardiovascular: Positive for chest pain, of the chest. Exam: 17:32 Constitutional: This is a well developed, well nourished patient who is awake, alert, alissa and in no acute distress. Head/Face: Normocephalic, atraumatic. Eyes: Pupils equal round and reactive to light, extra-ocular motions intact. Lids and lashes normal. Conjunctiva and sclera are non-icteric and not injected. Cornea within normal limits. Periorbital areas with no swelling, redness, or edema. ENT: Nares patent. No nasal discharge, no septal abnormalities noted. Tympanic membranes are normal and external auditory canals are clear. Oropharynx with no redness, swelling, or masses, exudates, or evidence of obstruction, uvula midline. Mucous membranes moist. Neck: Trachea midline, no thyromegaly or masses palpated, and no cervical lymphadenopathy. Supple, full range of motion without nuchal rigidity, or vertebral point tenderness. No Meningismus. Chest/axilla: Normal chest wall appearance and motion. Nontender with no deformity. No lesions are appreciated. Cardiovascular: Regular rate and rhythm with a normal S1 and S2. No gallops, murmurs, or rubs. Normal PMI, no JVD. No pulse deficits. Respiratory: Lungs have equal breath sounds bilaterally, clear to auscultation and percussion. No rales, rhonchi or wheezes noted. No increased work of breathing, no retractions or nasal flaring. Abdomen/GI: Soft, non-tender, with normal bowel sounds. No distension or tympany. No guarding or rebound. No evidence of tenderness throughout. Male : Normal genitalia with no discharge or lesions. Skin: Warm, dry with normal turgor. Normal color with no rashes, no lesions, and no evidence of cellulitis. MS/ Extremity: Pulses equal, no cyanosis. Neurovascular intact. Full, normal range of motion. Neuro: Awake and alert, GCS 15, oriented to person, place, time, and situation. Cranial nerves II-XII grossly intact. Motor strength 5/5 in all extremities. Sensory grossly intact. Cerebellar exam normal. Normal gait. Psych: Awake, alert, with orientation to person, place and time. Behavior, mood, and affect are within normal limits. 17:32 Musculoskeletal/extremity: DVT Exam: No signs of deep vein thrombosis. no pain, no swelling, no tenderness, negative Homans' sign noted on exam, no appreciated bluish discoloration, no erythema, no increased warmth. Vital Signs: 17:14 BP 137 / 87; Pulse 107; Resp 15; Temp 99.2; Pulse Ox 97% on R/A; Weight 99.79 kg (R); aj1 Height 6 ft. 0 in. (182.88 cm) (R); Pain 2/10; 18:12 BP 127 / 82; Pulse 103; Resp 20; Pulse Ox 97% on R/A; aj1 19:00 BP 118 / 94; Pulse 96; Resp 18; Pulse Ox 98% on R/A; wh 17:14 Body Mass Index 29.84 (99.79 kg, 182.88 cm) 1 MDM: 16:55 Patient medically screened. [facility] 17:34 Data reviewed: vital signs, nurses notes, lab test result(s), EKG, radiologic studies, alissa plain films. 07/15 16:56 Order name: Basic Metabolic Panel; Complete Time: 17:53 [facility] 07/15 16:56 Order name: CBC with Diff; Complete Time: 17:39 [facility] 07/15 16:56 Order name: LFT's; Complete Time: 17:53 [facility] 07/15 16:56 Order name: Magnesium; Complete Time: 17:53 [facility] 07/15 16:56 Order name: NT PRO-BNP; Complete Time: 17:53 [facility] 07/15 16:56 Order name: Troponin (emerg Dept Use Only); Complete Time: 17:53 [facility] 07/15 16:56 Order name: XRAY Chest (1 view); Complete Time: 19:37 [facility] 07/15 17:32 Order name: D-Dimer; Complete Time: 18:41 [facility] 07/15 17:38 Order name: Depakote; Complete Time: 19:16 [facility] 07/15 17:38 Order name: UDS [facility] 07/15 17:54 Order name: Troponin (emerg Dept Use Only): 630PM; Complete Time: 19:41 [facility] 07/15 19:23 Order name: Urine Dipstick--Ancillary (enter results) em1 07/15 16:56 Order name: EKG; Complete Time: 16:58 [facility] 07/15 16:56 Order name: Cardiac monitoring; Complete Time: 17:20 [facility] 07/15 16:56 Order name: EKG - Nurse/Tech; Complete Time: 17:20 [facility] 07/15 16:56 Order name: IV Saline Lock; Complete Time: 17:20 [facility] 07/15 16:56 Order name: Labs collected and sent; Complete Time: 17:20 [facility] 07/15 16:56 Order name: O2 Per Protocol; Complete Time: 17:20 [facility] 07/15 16:56 Order name: O2 Sat Monitoring; Complete Time: 17:20 [facility] 07/15 17:54 Order name: EKG; Complete Time: 17:55 [facility] 07/15 17:54 Order name: EKG - Nurse/Tech; Complete Time: 18:04 [facility] Administered Medications: 18:07 Drug: Aspirin 162 mg Route: PO; [facility] 19:54 Follow up: Response: No adverse reaction 18:07 Drug: Pepcid 20 mg Route: IVP; Site: right antecubital; [facility] 19:53 Follow up: Response: No adverse reaction Disposition: 07/15/19 19:38 Discharged to Home. Impression: Other chest pain, Dyspnea. - Condition is Stable. - Discharge Instructions: Nonspecific Chest Pain, Nonspecific Chest Pain, Kakz-[id number], Aspirin and Your Heart. - Prescriptions for Pepcid 20 mg Oral Tablet - take 1 tablet by ORAL route every 12 hours for 10 days; 20 tablet. - Medication Reconciliation Form, Thank You Letter, Antibiotic Education, Prescription Opioid Use form. - Follow up: Demetrius Hale; When: 2 - 3 days; Reason: Recheck today's complaints, Continuance of care, Re-evaluation by your physician. Follow up: Babar Weiss; When: 2 - 3 days; Reason: Recheck today's complaints, Re-evaluation by your physician. - Problem is new. - Symptoms have improved. Signatures: Dispatcher [employer] Rosana Faith RN RN aj1 Ian Ahn MD MD cha Habalo, Winsy Corrections: (The following items were deleted from the chart) 19:54 19:38 07/15/2019 19:38 Discharged to Home. Impression: Other chest pain; Dyspnea. wh Condition is Stable. Discharge Instructions: Nonspecific Chest Pain, Nonspecific Chest Pain, [id number], Aspirin and Your Heart. Prescriptions for Pepcid 20 mg Oral Tablet - take 1 tablet by ORAL route every 12 hours for 10 days; 20 tablet. and Forms are Medication Reconciliation Form, Thank You Letter, Antibiotic Education, Prescription Opioid Use. Follow up: Demetrius Hale; When: 2 - 3 days; Reason: Recheck today's complaints, Continuance of care, Re-evaluation by your physician. Follow up: Babar Weiss; When: 2 - 3 days; Reason: Recheck today's complaints, Re-evaluation by your physician. Problem is new. Symptoms have improved. alissa
--- NOTE | 2019-07-15 19:39 | ER ---
Nurse's Notes [facility] Name: Ranjeet John Age: 29 yrs Sex: Male : 1990 Arrival Date: 07/15/2019 Time: 16:53 Bed 27 Private MD: Demetrius Hale E Diagnosis: Other chest pain;Dyspnea Presentation: 07/15 17:11 Presenting complaint: Patient states: One hour ago he had an episode where he had aj1 squeezing chest pain, shortness of breath and light-headedness. Reports that this episode lasted approximately 30 minutes. Transition of care: patient was not received from another setting of care. Onset of symptoms was July 15, 2019. Risk Assessment: Do you want to hurt yourself or someone else? Patient reports no desire to harm self or others. Initial Sepsis Screen: Does the patient meet any 2 criteria? HR > 90 bpm. No. Patient's initial sepsis screen is negative. Does the patient have a suspected source of infection? No. Patient's initial sepsis screen is negative. Care prior to arrival: None. 17:11 Method Of Arrival: Ambulatory aj1 17:11 Acuity: TERI 3 aj1 Triage Assessment: 17:14 General: Appears in no apparent distress. comfortable, Behavior is calm, cooperative, aj1 appropriate for age. Pain: Complains of pain in mid-sternal area Pain currently is 2 out of 10 on a pain scale. Respiratory: Reports shortness of breath Onset: The symptoms/episode began/occurred suddenly, the patient has mild shortness of breath. Historical: - Allergies: 17:14 No Known Allergies; aj1 - Home Meds: 17:14 Adderall XR Oral [Active]; Depakote Oral [Active]; aj1 - PMHx: 17:14 ADD/ADHD; mood disorder; aj1 - Immunization history:: Flu vaccine is not up to date. - Social history:: Smoking status: Patient uses tobacco products, denies chronic smoking, but will smoke occasionally. - Ebola Screening: : Patient denies travel to an Ebola-affected area in the 21 days before illness onset. - Family history:: not pertinent. Screenin:16 Abuse screen: Denies threats or abuse. Denies injuries from another. Nutritional aj1 screening: No deficits noted. Tuberculosis screening: No symptoms or risk factors identified. Assessment: 17:16 General: Appears in no apparent distress. comfortable, Behavior is calm, cooperative, aj1 appropriate for age. Pain: Complains of pain in mid-sternal area Pain does not radiate. Pain currently is 2 out of 10 on a pain scale. Quality of pain is described as pressure, "gripping" Pain began 1 hour ago. Neuro: Level of Consciousness is awake, alert, obeys commands, Oriented to person, place, time, situation. Neuro: Moves all extremities. Full function Gait is steady, Speech is normal, Facial symmetry appears normal, Reports dizziness, Denies weakness. Cardiovascular: Reports chest pain, shortness of breath, Heart tones S1 S2 present Patient's skin is warm and dry. Rhythm is sinus tachycardia. Respiratory: Reports shortness of breath Airway is patent Respiratory effort is even, unlabored, Respiratory pattern is regular, symmetrical, Breath sounds are clear bilaterally. GI: No signs and/or symptoms were reported involving the gastrointestinal system. : No signs and/or symptoms were reported regarding the genitourinary system. EENT: No signs and/or symptoms were reported regarding the EENT system. Derm: No signs and/or symptoms reported regarding the dermatologic system. Skin is pink, warm \\T\\ dry. normal. Musculoskeletal: No signs and/or symptoms reported regarding the musculoskeletal system. Circulation, motion, and sensation intact. 18:11 Reassessment: Patient appears in no apparent distress at this time. No changes from aj1 previously documented assessment. Patient and/or family updated on plan of care and expected duration. Pain level reassessed. Patient is alert, oriented x 3, equal unlabored respirations, skin warm/dry/pink. 19:30 Reassessment: Patient appears in no apparent distress at this time. No changes from previously documented assessment. Patient and/or family updated on plan of care and expected duration. Pain level reassessed. Patient is alert, oriented x 3, equal unlabored respirations, skin warm/dry/pink. Patient denies pain at this time. Vital Signs: 17:14 BP 137 / 87; Pulse 107; Resp 15; Temp 99.2; Pulse Ox 97% on R/A; Weight 99.79 kg (R); aj1 Height 6 ft. 0 in. (182.88 cm) (R); Pain 2/10; 18:12 BP 127 / 82; Pulse 103; Resp 20; Pulse Ox 97% on R/A; aj1 19:00 BP 118 / 94; Pulse 96; Resp 18; Pulse Ox 98% on R/A; 17:14 Body Mass Index 29.84 (99.79 kg, 182.88 cm) [facility] ED Course: 16:53 Patient arrived in ED. mr 16:53 Demetrius Hale MD is Private Physician. mr 16:55 Ian Ahn MD is Attending Physician. [facility] 17:11 Rosana Ordoñez RN is Primary Nurse. aj1 17:13 Triage completed. aj1 17:14 Arm band placed on. aj1 17:16 Patient has correct armband on for positive identification. Placed in gown. Bed in low aj1 position. Call light in reach. Side rails up X 1. awake overnight monitor on. Pulse ox on. NIBP on. 17:16 No provider procedures requiring assistance completed. aj1 17:18 Initial lab(s) drawn, by ak, sent to lab. Inserted saline lock: 20 gauge in right lt1 antecubital area, using aseptic technique. 17:35 EKG done, by electrophysiology tech. reviewed by Ian Ahn MD. [facility] 18:40 XRAY Chest (1 view) In Process Unspecified. EDMS 19:29 Urine collected: clean catch specimen, clear, EKG done, by ED staff. lt1 19:30 Urine Dipstick--Ancillary (enter results) Sent. lt1 19:30 UDS Sent. lt1 19:30 Troponin (emerg Dept Use Only): 630PM Sent. lt1 19:38 Demetrius Hale MD is Referral Physician. [facility] 19:38 Babar Weiss MD is Referral Physician. [facility] Administered Medications: 18:07 Drug: Aspirin 162 mg Route: PO; aj1 19:54 Follow up: Response: No adverse reaction 18:07 Drug: Pepcid 20 mg Route: IVP; Site: right antecubital; aj1 19:53 Follow up: Response: No adverse reaction Outcome: 19:38 Discharge ordered by . [facility] 19:54 Patient left the ED. Signatures: Dispatcher [employer] EDMS Rosana Ordoñez, RYAN RN aj Ian Ahn MD MD cha Rivera, Mary Miranda Guerra Yissel Torres [facility] Whitney Price [facility]
[2019-07-15 20:23] LABS: Urine Glucose NEGATIVE (NEG)
[2019-07-15 20:24] LABS: Urine Blood NEGATIVE (NEG); Urine Protein NEGATIVE (NEG); Urine pH 7.5 (5.0-7.0)
[2019-07-15 21:05] VITALS: TEMP 99.2
[2019-07-15 21:08] VITALS: BP 118/94; O2SAT 98
[2019-07-15 21:36] LABS: Barbiturates NEGATIVE (NEGATIVE); Benzodiazepines NEGATIVE (NEGATIVE); Cocaine NEGATIVE (NEGATIVE); METHAMPHETAM POSITIVE (NEGATIVE); Methadone NEGATIVE (NEGATIVE); Opiates NEGATIVE (NEGATIVE); Phencyclidine NEGATIVE (NEGATIVE); THC Cannibis NEGATIVE (NEGATIVE)
--- NOTE | 2019-07-16 08:29 | EKG ---
Test Date: 2019-07-15 Test Time: 18:03:13 Teacher Aide Clerical: DELL MEASUREMENT RESULTS: Intervals: Rate: 98 W[place]: 124 QRSD: 84 QT: 326 QTc: 416 [place]: P: 76 WY: 124 QRS: 81 T: 50 INTERPRETIVE STATEMENTS: Normal sinus rhythm Normal ECG Compared to ECG 07/15/2019 17:16:01 Sinus tachycardia no longer present Electronically Signed On 07-16-19 08:28:31 CDT by Babar Weiss
--- NOTE | 2019-07-16 08:30 | EKG ---
Test Date: 2019-07-15 Test Time: 17:16:01 Grab Driver: LUKE MEASUREMENT RESULTS: Intervals: Rate: 102 SC: 126 QRSD: 84 QT: 326 QTc: 424 [place]: P: 85 SC: 126 QRS: 89 T: 72 INTERPRETIVE STATEMENTS: Sinus tachycardia Otherwise normal ECG Compared to ECG 06/13/2017 10:06:33 Sinus rhythm no longer present Electronically Signed On 07-16-19 08:28:36 CDT by Babar Weiss
== END 2019-07-15 19:54 | disposition home or self-care (01) ==
LOC: ER 16:49
DX: R07.89 Other chest pain (principal); F90.9 Attention-deficit hyperactivity disorder, unspecified type; F39 Unspecified mood [affective] disorder; Z72.0 Tobacco use
CPT/HCPCS: 36415; 71045; 80048; 80076; 80164; 80307; 81003; 83735; 83880; 84484; 85025; 85379; 93005; 96374; 99285

== ENCOUNTER 2019-07-15 23:23 | Emergency (ER) | payer BC ==
--- NOTE | 2019-07-16 01:53 | ER ---
Nurse's Notes [facility] Name: Ranjeet John Age: 29 yrs Sex: Male : 1990 Arrival Date: 07/15/2019 Time: 23:26 Bed 7 Private MD: Diagnosis: Chest pain, unspecified;Hyperventilation Presentation: 07/15 23:38 Presenting complaint: Patient states: he wants to be seen again because his symptoms bb are back he is having chest pain, numbness and tingling to arms, shortness of breath, dizzy. Transition of care: patient was not received from another setting of care. Onset of symptoms was July 15, 2019. Risk Assessment: Do you want to hurt yourself or someone else? Patient reports no desire to harm self or others. Initial Sepsis Screen: Does the patient meet any 2 criteria? No. Patient's initial sepsis screen is negative. Does the patient have a suspected source of infection? No. Patient's initial sepsis screen is negative. Care prior to arrival: None. 23:38 Method Of Arrival: Ambulatory bb 23:38 Acuity: TERI 4 bb Historical: - Allergies: 23:40 No Known Allergies; bb - Home Meds: 23:40 Adderall XR Oral [Active]; Depakote Oral [Active]; bb - PMHx: 23:40 ADD/ADHD; mood disorder; bb - PSHx: 23:40 Knee surgery; bilateral hand surgery; bb - Immunization history:: Adult Immunizations up to date. - Social history:: Smoking status: Patient uses tobacco products, denies chronic smoking, but will smoke occasionally. - Ebola Screening: : No symptoms or risks identified at this time. - Family history:: not pertinent. - Hospitalizations: : No recent hospitalization is reported. Screenin:55 Abuse screen: Denies threats or abuse. Denies injuries from another. Nutritional ak1 screening: No deficits noted. Tuberculosis screening: No symptoms or risk factors identified. Fall Risk None identified. Assessment: 23:51 General: Appears in no apparent distress. comfortable, Behavior is calm, cooperative, ak1 anxious. Pain: Pain does not radiate. Pain began today. pt was seen in ER and discharged, pt stated he went home and laid in bed when he became SOB and had chest pain. no resp distress noted at this time. pt state he has been on medications for anxiety before. Neuro: Level of Consciousness is awake, alert, obeys commands, Oriented to person, place, time, situation, Appropriate for age Mud Mixer are equal bilaterally Moves all extremities. Gait is steady, Speech is normal, Facial symmetry appears normal. Cardiovascular: Heart tones S1 S2 present Capillary refill < 3 seconds Patient's skin is warm and dry. Respiratory: Airway is patent Respiratory effort is even, Respiratory pattern is symmetrical. GI: No signs and/or symptoms were reported involving the gastrointestinal system. : No signs and/or symptoms were reported regarding the genitourinary system. EENT: No signs and/or symptoms were reported regarding the EENT system. Derm: No signs and/or symptoms reported regarding the dermatologic system. Musculoskeletal: Range of motion: intact in all extremities. 07/16 01:18 Reassessment: Patient appears in no apparent distress at this time. Patient and/or ak1 family updated on plan of care and expected duration. Pain level reassessed. Patient is alert, oriented x 3, equal unlabored respirations, skin warm/dry/pink. 01:53 Reassessment: Patient appears in no apparent distress at this time. Patient and/or ak1 family updated on plan of care and expected duration. Pain level reassessed. Patient is alert, oriented x 3, equal unlabored respirations, skin warm/dry/pink. no resp distress noted while in ER. pt resp even and unlabored. Dr. Couch at bedside to explain results to pt. Vital Signs: 07/15 23:40 BP 122 / 81; Pulse 82; Resp 32 S; Temp 98(O); Pulse Ox 100% on R/A; Weight 99.79 kg bb (R); Height 6 ft. 0 in. (182.88 cm) (R); Pain 8/10; 23:51 BP 121 / 73; Pulse 85; Resp 24; Pulse Ox 100% on R/A; ak1 07/16 00:02 BP 118 / 82; Pulse 82; Resp 20; Pulse Ox 98% on R/A; ak1 01:07 BP 112 / 85; Pulse 72; Resp 16; Pulse Ox 96% on R/A; ak1 07/15 23:40 Body Mass Index 29.84 (99.79 kg, 182.88 cm) ED Course: 07/15 23:26 Patient arrived in ED. cf2 23:39 Triage completed. bb 23:40 Arm band placed on Patient placed in an exam room, on a stretcher, on pulse oximetry. bb 23:45 Pamela Das, RN is Primary Nurse. ak1 23:55 Patient has correct armband on for positive identification. Bed in low position. Call ak1 light in reach. Side rails up X 1. Pulse ox on. NIBP on. 23:55 Patient maintains SpO2 saturation greater than 95% on room air. ak1 23:59 Roberto Carlos Couch MD is Attending Physician. rn 07/16 00:22 Inserted saline lock: 20 gauge in right antecubital area, using aseptic technique. jd3 Blood collected. 00:55 CT Chest For PE Angio In Process Unspecified. EDMS 01:17 No provider procedures requiring assistance completed. ak1 01:18 Awaiting radiology results. ak1 02:07 IV discontinued, intact, bleeding controlled, No redness/swelling at site. Pressure ak1 dressing applied. Administered Medications: No medications were administered Outcome: 01:52 Discharge ordered by MD. rn 01:53 Discharged to home ambulatory. ak1 01:53 Condition: stable 02:05 Discharge instructions given to patient, Instructed on discharge instructions, follow ak1 up and referral plans. Demonstrated understanding of instructions, follow-up care. 02:07 Patient left the ED. ak1 Signatures: Dispatcher [employer] EDMS Virgen Aguilera RN RN bb Nieto, Roman, MD MD rn Krenek, Amber RN RN ak1 Tae Emerson RN RN Christ Hamm cf2
--- NOTE | 2019-07-16 01:54 | EDPHYS ---
Physician Documentation [facility] Name: Ranjeet John Age: 29 yrs Sex: Male : 1990 Arrival Date: 07/15/2019 Time: 23:26 Bed 7 Private MD: ED Physician Roberto Carlos Couch HPI: 07/16 00:20 This 29 yrs old Male presents to ER via Ambulatory with complaints of Chest rn Pain. 00:20 The patient or guardian reports chest pain that is located primarily in the anterior rn chest wall, left. The pain does not radiate. Associated signs and symptoms: Pertinent positives: lightheadedness, Pertinent negatives: cough, diaphoresis, lower extremity swelling, syncope. The chest pain is described as a heaviness. Duration: The patient or guardian reports multiple episodes, that have now resolved. Modifying factors: The symptoms are alleviated by nothing. the symptoms are aggravated by nothing. Severity of pain: At its worst the pain was mild in the emergency department the pain is unchanged. The patient has experienced a previous episode. The patient has been recently seen at the [facility] Emergency Department. Seen here earlier for same complaint, neg w/u, given pepcid, went home, felt fine, at rest began with chest tightness again, lasted about 15 min, no fever/cough/abd pain/vomiting/diarrhea/blood in stool. Denies drug use. No trauma. . Historical: - Allergies: 07/15 23:40 No Known Allergies; bb - Home Meds: 23:40 Adderall XR Oral [Active]; Depakote Oral [Active]; bb - PMHx: 23:40 ADD/ADHD; mood disorder; bb - PSHx: 23:40 Knee surgery; bilateral hand surgery; bb - Immunization history:: Adult Immunizations up to date. - Social history:: Smoking status: Patient uses tobacco products, denies chronic smoking, but will smoke occasionally. - Ebola Screening: : No symptoms or risks identified at this time. - Family history:: not pertinent. - Hospitalizations: : No recent hospitalization is reported. ROS: 07/16 00:20 Constitutional: Negative for fever, chills, and weight loss, Eyes: Negative for injury, rn pain, redness, and discharge, Cardiovascular: Negative for palpitations, and edema, Respiratory: Negative for cough, wheezing, and pleuritic chest pain, Abdomen/GI: Negative for abdominal pain, nausea, vomiting, diarrhea, and constipation, MS/Extremity: Negative for injury and deformity, Skin: Negative for injury, rash, and discoloration, Neuro: Negative for headache, weakness, numbness, tingling, and seizure. Exam: 00:20 Constitutional: This is a well developed, well nourished patient who is awake, alert, rn appears anxious Head/Face: Normocephalic, atraumatic. Eyes: Pupils equal round and reactive to light, extra-ocular motions intact. Lids and lashes normal. Conjunctiva and sclera are non-icteric and not injected. Cornea within normal limits. Periorbital areas with no swelling, redness, or edema. ENT: MMM Cardiovascular: Regular rate and rhythm. No pulse deficits. Respiratory: Lungs have equal breath sounds bilaterally, clear to auscultation. No increased work of breathing, no retractions or nasal flaring. Abdomen/GI: soft, mild RUQ tenderness MS/ Extremity: Pulses equal, no cyanosis. Neurovascular intact. Full, normal range of motion. Equal circumference. Neuro: Awake and alert, GCS 15, oriented to person, place, time, and situation. Cranial nerves II-XII grossly intact. Motor strength 5/5 in all extremities. Sensory grossly intact. Cerebellar exam normal. Normal gait. 01:01 ECG was reviewed by the Attending Physician. rn Vital Signs: 07/15 23:40 BP 122 / 81; Pulse 82; Resp 32 S; Temp 98(O); Pulse Ox 100% on R/A; Weight 99.79 kg bb (R); Height 6 ft. 0 in. (182.88 cm) (R); Pain 8/10; 23:51 BP 121 / 73; Pulse 85; Resp 24; Pulse Ox 100% on R/A; ak1 07/16 00:02 BP 118 / 82; Pulse 82; Resp 20; Pulse Ox 98% on R/A; ak1 01:07 BP 112 / 85; Pulse 72; Resp 16; Pulse Ox 96% on R/A; ak1 07/15 23:40 Body Mass Index 29.84 (99.79 kg, 182.88 cm) bb MDM: 07/15 23:59 Patient medically screened. rn 07/16 01:50 Differential diagnosis: anxiety, Cholelithiasis costochondritis, esophagitis, rn gastritis, pericarditis, pleurisy, pneumonia, pneumothorax, pulmonary embolus. Data reviewed: vital signs, nurses notes, old medical records, lab test result(s), EKG, radiologic studies, CT scan, and as a result, I will discharge patient. Counseling: I had a detailed discussion with the patient and/or guardian regarding: the historical points, exam findings, and any diagnostic results supporting the discharge/admit diagnosis, lab results, radiology results, the need for outpatient follow up, to return to the emergency department if symptoms worsen or persist or if there are any questions or concerns that arise at home. Response to treatment: the patient's symptoms have resolved after treatment, the patient is now symptom free, and as a result, I will discharge patient. Special discussion: Based on the patient's history, exam, and Dx evaluation, there is no indication for emergent intervention or inpatient Tx. It is understood by the patient/guardian that if the Sx's persist or worsen they need to return immediately for re-evaluation. I discussed with the patient/guardian in detail that at this point there is no indication for admission to the hospital. It is understood, however, that if the symptoms persist or worsen the patient needs to return immediately for re-evaluation. ED course: Labs from earlier neg, added repeat trop/ecg, and ct chest for PE, and negative. Secondary symptoms likely from hyperventilation but cause of his original chest discomfort not clear. Stable vitals, no oxygen requirement. Will dc home with pcp f/u. Return precautions given and understood. . 07/16 00:09 Order name: Troponin (emerg Dept Use Only); Complete Time: : rn 07/16 00:10 Order name: CT Chest For PE Angio rn 07/16 00:09 Order name: EKG; Complete Time: 00: rn 07/16 00:09 Order name: EKG - Nurse/Tech; Complete Time: rn 07/16 00:09 Order name: IV Start; Complete Time: : rn EC:01 Rate is 81 beats/min. Rhythm is regular. QRS [place] is Normal. [place] interval is normal. QRS rn interval is normal. QT interval is normal. No Q waves. T waves are Normal. No ST changes noted. Clinical impression: Normal ECG. Interpreted by me. Reviewed by me. Administered Medications: No medications were administered Disposition: 07/16/19 01:52 Discharged to Home. Impression: Chest pain, unspecified, Hyperventilation. - Condition is Stable. - Discharge Instructions: Nonspecific Chest Pain, Pain Without a Known Cause. - Medication Reconciliation Form, Thank You Letter, Antibiotic Education, Prescription Opioid Use form. - Follow up: Private Physician; When: As needed; Reason: Recheck today's complaints, Re-evaluation by your physician. - Problem is new. - Symptoms have improved. Signatures: Dispatcher [employer] EDVirgen Richards RN RN Roberto Carlos Mantilla MD MD rn Krenek, Amber, RN RN ak1 Corrections: (The following items were deleted from the chart) 02:07 01:52 07/16/2019 01:52 Discharged to Home. Impression: Chest pain, unspecified; ak1 Hyperventilation. Condition is Stable. Forms are Medication Reconciliation Form, Thank You Letter, Antibiotic Education, Prescription Opioid Use. Follow up: Private Physician; When: As needed; Reason: Recheck today's complaints, Re-evaluation by your physician. Problem is new. Symptoms have improved. rn
[2019-07-16 03:02] VITALS: TEMP 98
[2019-07-16 03:05] VITALS: BP 112/85; O2SAT 96
--- NOTE | 2019-07-16 08:28 | EKG ---
Test Date: 2019-07-16 Test Time: 00:21:36 Acid Tester: KELSIE MEASUREMENT RESULTS: Intervals: Rate: 81 HI: 130 QRSD: 90 QT: 356 QTc: 413 [place]: P: 65 HI: 130 QRS: 74 T: 54 INTERPRETIVE STATEMENTS: Normal sinus rhythm Normal ECG Compared to ECG 07/15/2019 18:03:13 No significant changes Electronically Signed On 07-16-19 08:26:54 CDT by Babar Weiss
--- NOTE | 2019-07-16 11:14 | RAD REPORT ---
EXAM DESCRIPTION: CT - Chest For Pe Angio - 07/16/2019 2:44 am CLINICAL HISTORY: Shortness of breath. COMPARISON: None. TECHNIQUE: CT angiogram of the chest with IV contrast. 3-D MIP images were obtained in coronal and s agittal reconstructions. This exam was performed according to our departmental dose-optimization prog leroy, which includes automated exposure control, adjustment of the mA and/or kV according to patient s ize and/or use of iterative reconstruction technique. FINDINGS: No filling defects are identified in the pulmonary trunk, main left and right pulmonary ar teries, or the segmental branches. The thyroid gland is normal. No mediastinal or hilar adenopathy. The heart size is normal without per icardial effusion. The thoracic aorta is normal caliber. No consolidation, pleural effusion, or pneum othorax is identified. The visualized upper abdomen demonstrates no acute findings. No acute osseous findings are seen. IMPRESSION: No acute pulmonary embolism. Electronically signed by: Kemal Montesinos MD 07/16/2019 1:31 AM CDT Due to temporary technical issues with the PACS/Fluency reporting system, reports are being signed by the in house radiologist as a courtesy to ensure prompt reporting. The interpreting radiologist is f ully responsible for the content of the report.
== END 2019-07-16 02:07 | disposition home or self-care (01) ==
LOC: ER 23:23
DX: R07.9 Chest pain, unspecified (principal); R06.4 Hyperventilation; F90.9 Attention-deficit hyperactivity disorder, unspecified type
CPT/HCPCS: 93005; 36415; 84484; 71275; 99284; Q9967

== ENCOUNTER 2020-01-29 | Emergency (ER) | payer BC | END 2020-01-29 21:47 | disposition home or self-care (01) | CPT/HCPCS: 99283 ==